=== PATIENT | female | born 2000 | race Caucasian/White ===

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

== ENCOUNTER 2020-01-22 13:58 | Emergency (ER) | payer BC, SELFPAY ==
[2020-01-22 14:07] VITALS: BP 178/104; PULSE 110; RESP 18; TEMP 36.7; O2SAT 99; BMI 30.4
--- NOTE | 2020-01-22 14:20 | XRR_ITS ---
PROCEDURE INFORMATION: Exam: XR Chest, 1 View Exam date and time: 01/22/2020 2:22 PM Age: 20 years old Clinical indication: Patient HX: Cough x4 days TECHNIQUE: Imaging protocol: XR of the chest Views: 1 view. COMPARISON: No relevant prior studies available. FINDINGS: Lungs: Unremarkable. No consolidation. Pleural space: Unremarkable. No pleural effusion. No pneumothorax. Heart/Mediastinum: Unremarkable. No cardiomegaly. Bones/joints: Unremarkable. XR/XR chest 1V portable [id number] IMPRESSION: No acute findings.
--- NOTE | 2020-01-22 14:23 | W.ED.FEVER ---
HPI - Fever General: Chief Complaint: Fever Stated Complaint: possible covid Time Seen by Provider: 01/22/20 14:07 History of Present Illness: HPI Narrative: Patient reports that she has had nausea vomiting diarrhea for the past 3 days. She has not been able to keep anything down for 3 days. She states she woke up this morning with a deep nonproductive cough and a fever. MD elicited complaint: fever, malaise and weakness Onset (ago): day(s) Exacerbating factors: nothing Relieving factors: nothing Associated symptoms: Reports cough, diarrhea, myalgias, nausea, short of breath and vomiting Review of Systems Const: Reports: fever(s) GI: Reports: nausea, vomiting and diarrhea PFSH ED PFSH: Social History Smoking and tobacco status: current every day smoker Alcohol intake: never Physical Exam Const: COMMON NORMALS: no acute distress, healthy appearing and well nourished GENERAL APPEARANCE: cooperative and well developed HENMT: COMMON NORMALS: normocephalic and atraumatic HEAD & SCALP: normal to inspection, normocephalic and atraumatic Eye: GENERAL EYE: appearance normal, both eyes and all related structures Neck/C-Spine: COMMON NORMALS: full ROM, no lymphadenopathy and no meningeal signs GENERAL: Yes normal visual inspection CERVICAL SPINE: Yes cervical ROM normal and Yes normal cervical lordosis Chest: COMMONS NORMALS: normal inspection of the chest and normal palpation of entire chest wall Resp: COMMON NORMALS: normal respiratory effort, clear to auscultation bilaterally and percussion normal AUSCULTATION: clear to auscultation bilaterally PERCUSSION: percussion normal Cardio: COMMON NORMALS: regular rhythm, S1 normal heart sound present and S2 normal heart sound present JUGULAR VENOUS DISTENTION: no JVD PALPATION: normal PMI RATE: tachycardic RHYTHM: regular rhythm HEART SOUNDS: S1 normal heart sound present and S2 normal heart sound present GI: COMMON NORMALS: Soft to palpation and No hepatosplenomegaly present INSPECTION: Yes normal to inspection PALPATION: Yes Soft to palpation and Yes No hepatosplenomegaly present PERCUSSION: normal to percussion : COMMON NORMALS: Yes no CVA tenderness BLADDER/KIDNEY EXAM: Yes no CVA tenderness Back/Pelvis: COMMON NORMALS: no CVA tenderness, thoracic and lumbar spine normal to inspection and thoraco-lumbar ROM normal Extremity: COMMON NORMALS: normal to inspection, full ROM and capillary refill normal Neuro: MENINGEAL SIGNS: Yes no meningeal signs Skin: COMMON NORMALS: no rashes or lesions noted, no wounds and turgor normal GENERAL SKIN EXAM: no rashes or lesions noted, elasticity normal and turgor normal LESIONS: no lesions RASHES: no rashes TRAUMA: no lacerations or abrasions HAIR: normal NAILS: normal Course Vital Signs: Vital signs: Vital Signs Temperature 98.1 F 01/22/20 14:07 Pulse Rate 110 H 01/22/20 14:07 Respiratory Rate 18 01/22/20 14:07 Blood Pressure 178/104 01/22/20 14:07 Pulse Oximetry 99 01/22/20 14:07 MDM - Fever Lab Data: Labs: Lab Results 01/22/20 01/22/20 01/22/20 Range/Units 14:45 14:45 14:45 WBC 9.2 (4.5-13.0) 10^3/ uL RBC 5.10 (4.1-5.3) 10^6/u L Hgb 15.4 H (11.5-15.3) g/dL Hct 45.9 (37.0-47.0) % MCV 90.0 (81-99) fL MCH 30.2 (28.0-34.0) pg MCHC 33.6 (30.0-36.0) g/dL RDW 12.8 (12.1-15.1) % Plt Count 334 (130-400) 10^3/c mm MPV 10.1 (7.4-10.4) fL Neut % (Auto) 62.1 % Lymph % (Auto) 29.8 % [place] % (Auto) 4.8 % Eos % (Auto) 2.1 % Baso % (Auto) 0.9 % Neut # (Auto) 5.7 (1.8-8.0) 10^3/u L Lymph # (Auto) 2.8 (1.5-6.5) 10^3/u L [place] # (Auto) 0.4 (0.2-0.9) 10^3/u L Eos # (Auto) 0.2 (0.0-0.8) 10^3/u L Baso # (Auto) 0.1 (0.0-0.1) 10^3/u L Nucleated RBC % (a uto) 0 % Nucleated RBCs # 0.0 /100WBC Sodium 141 (136-145) mmol/L Potassium 3.9 (3.5-5.1) mmol/L Chloride 106 (98-107) mmol/L Carbon Dioxide 22 (22-29) mmol/L Anion Gap 16.9 (5-19) BUN 7 (6-20) mg/dL Creatinine 0.5 (0.5-0.9) mg/dL GFR Calculation 157.3 H (90-130) mL/min Glucose 93 (65-115) mg/dL Calculated Osmolal ity 288 (285-295) mOsm/k g Lactate 0.8 (0.5-2.2) mmol/L Calcium 9.6 (8.5-10.5) mg/dL Total Bilirubin 1.0 (0.15-1.2) mg/dL AST 16 (0-32) U/L ALT 15 (0-33) U/L Alkaline Phosphata se 76 (35-105) IU/L Total Protein 7.1 (6.6-8.7) g/dL Albumin 4.8 (3.5-5.2) g/dL Globulin 2.3 (1.3-4.6) g/dL Discharge Plan Discharge Patient Disposition: Home, Self-Care Clinical Impression: Viral infection, Pharyngitis with viral syndrome Upper respiratory infection Qualifiers: URI type: unspecified URI Qualified Code(s): J06.9 - Acute upper respiratory infection, unspecified Condition: Stable Prescriptions: New Bactrim DS 800-160 mg tablet 1 tab PO Q12H 10 Days Qty: 20 RF: 0 albuterol sulfate 90 mcg/actuation HFA aerosol inhaler 1 inh INHALATION Q4H PRN (Reason: shortness of breath or wheezing) Qty: 8.5 RF: 0 Discharge Orders: Discharge Order (Routine); Ordered 01/22/20 Ordered By: Marito Schwartz Referrals: Missy Bello FNP [Primary Care Provider] - Coding Level of Care Code ED Performance Improvement Analyst for g Fwd Exam Comprehensive
[2020-01-22 14:52] LABS: Basophils # 0.1 10^3/uL (0.0-0.1); Basophils % 0.9 %; Eosinophils # 0.2 10^3/uL (0.0-0.8); Eosinophils % 2.1 %; Hematocrit 45.9 % (37.0-47.0); Hemoglobin 15.4 g/dL (11.5-15.3); Lymphocytes # 2.8 10^3/uL (1.5-6.5); Lymphocytes % 29.8 %; Mean Corpuscular HGB Conc 33.6 g/dL (30.0-36.0); Mean Corpuscular Hemoglobin 30.2 pg (28.0-34.0); Mean Platelet Volume 10.1 fL (7.4-10.4); Monocytes # 0.4 10^3/uL (0.2-0.9); Monocytes % 4.8 %; Neutrophils # 5.7 10^3/uL (1.8-8.0); Neutrophils % 62.1 %; Nucleated Red Blood Cells % 0 %; Platelet Count 334 10^3/cmm (130-400); Red Cell Distribution Width 12.8 % (12.1-15.1); White Blood Count 9.2 10^3/uL (4.5-13.0)
[2020-01-22] MEDS: sodium chloride 0.9% 1,000 ML 999 ML IV (14:52)
[2020-01-22 15:06] LABS: Lactate (Lactic Acid level) 0.8 mmol/L (0.5-2.2)
[2020-01-22 15:16] LABS: Alanine Aminotransferase 15 U/L (0-33); Albumin Level 4.8 g/dL (3.5-5.2); Alkaline Phosphatase 76 IU/L (35-105); Anion Gap 16.9 (5-19); Aspartate Amino Transferase 16 U/L (0-32); Blood Urea Nitrogen 7 mg/dL (6-20); Calcium 9.6 mg/dL (8.5-10.5); Carbon Dioxide 22 mmol/L (22-29); Chloride 106 mmol/L (98-107); Globulin 2.3 g/dL (1.3-4.6); Glomerular Filtration Rate 157.3 mL/min (90-130); Glucose 93 mg/dL (65-115); Osmolality Calculated 288 mOsm/kg (285-295); Potassium 3.9 mmol/L (3.5-5.1); Sodium 141 mmol/L (136-145); Total Protein 7.1 g/dL (6.6-8.7)
[2020-01-22 16:20] VITALS: BP 127/76; PULSE 92; RESP 16; O2SAT 100
[2020-01-24 19:26] LABS: Quest SARS-CoV-2 RNA NOT DETECTED (NOT DETECTED)
--- NOTE | 2020-01-27 16:09 | PC.NURSE ---
Pt called regarding her COVID test results. Pt notified that her results are negative.
== END 2020-01-22 16:22 | disposition home or self-care (01) ==
PROVIDERS: Emergency Provider Family Medicine; PCP Nurse Practitioner
DX: J02.8 Acute pharyngitis due to other specified organisms (principal); F17.210 Nicotine dependence, cigarettes, uncomplicated
CPT/HCPCS: 12345; 36415; 71045; 80053; 83605; 85025; 87040; 87635; 96360; 99282; 99283; J7030

== ENCOUNTER 2021-05-06 08:21 | Outpatient (CLI) | payer OTHER, SELFPAY ==
--- NOTE | 2021-05-06 08:45 | MR_ITS ---
WS: [id number] MRI RIGHT SHOULDER HISTORY: Right shoulder pain, h/o RCT x 2 with surgical repair x 2. COMPARISON: None available. TECHNIQUE: Multiplanar sequences of the shoulder joint are submitted. Mild AC joint hypertrophy. Mild thickening of the joint capsule and narrowing of the AC joint. No sub acromial or subdeltoid bursal fluid. No os acromion. Biceps tendon is subluxed from the bicipital adrian ove. No muscle atrophy or edema. There is a small cystic mass which is lobulated measuring 2.3 x 0.6 cm in the spinoglenoid notch. This may be a paralabral cyst. There is mild irregularity in the posterior s uperior labrum but no definite tear identified. Very mild narrowing of the glenohumeral joint. Again no muscle atrophy or edema. Very mild tendinopathy in the distal supraspinatus tendon but no tear identified. MR/MR shoulder RT wo con* [id number] IMPRESSION: 1. No rotator cuff tear is identified. 2. Mild tendinopathy distal supraspinatus tendon. 3. 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 Consider paralabral cyst whi ch can be associated with a labral tear. No labral tear identified. 4. Subluxed biceps tendon.
== END 2021-05-06 08:22 | disposition home or self-care (01) ==
LOC: RADSHAW 08:25
PROVIDERS: PCP Family Medicine; Visit Provider Family Medicine
DX: M25.511 Pain in right shoulder (principal); M75.101 Unspecified rotator cuff tear or rupture of right shoulder, not specified as traumatic
CPT/HCPCS: 73221

== ENCOUNTER 2021-05-17 06:00 | Outpatient (RCR) | payer OTHER, SELFPAY | END 2021-06-09 23:59 | disposition home or self-care (01) | LOC: SPT 06:00 | PROVIDERS: PCP Family Medicine; Referring Provider Orthopaedic Surgery; Visit Provider Orthopaedic Surgery | DX: M25.551 Pain in right hip (principal) | CPT/HCPCS: 97110; 97161 ==

== ENCOUNTER → 2021-05-22 15:51 | Outpatient (BNVA) | payer OTHER, SELFPAY | PROVIDERS: PCP Family Medicine; Visit Provider Nurse Practitioner Family | DX: Z20.822 Contact with and (suspected) exposure to COVID-19 (principal) | CPT/HCPCS: 87635 ==

== ENCOUNTER → 2021-05-25 14:36 | Outpatient (BNVA) | payer OTHER, SELFPAY | PROVIDERS: PCP Family Medicine; Visit Provider Registered Nurse Neonatal Intensive Care | DX: Z20.822 Contact with and (suspected) exposure to COVID-19 (principal); J02.9 Acute pharyngitis, unspecified | CPT/HCPCS: 87071; 87635; 87880 ==

== ENCOUNTER 2021-06-10 06:00 | Outpatient (RCR) | payer OTHER, SELFPAY | END 2021-07-09 23:59 | disposition home or self-care (01) | LOC: SPT 06:00 | PROVIDERS: PCP Family Medicine; Referring Provider Orthopaedic Surgery; Visit Provider Orthopaedic Surgery | DX: M25.511 Pain in right shoulder (principal) | CPT/HCPCS: 97110 ==

== ENCOUNTER → 2021-07-12 13:35 | Outpatient (BNVA) | payer OTHER, SELFPAY | PROVIDERS: PCP Family Medicine; Visit Provider Orthopaedic Surgery | DX: Z01.818 Encounter for other preprocedural examination (principal); Z20.822 Contact with and (suspected) exposure to COVID-19 | CPT/HCPCS: 87635 ==

== ENCOUNTER 2021-07-18 09:06 | Day surgery (SDC) | payer OTHER, SELFPAY ==
[2021-07-17 13:12] VITALS: BMI 30.4
[2021-07-18] VITALS (18 sets, daily range): BP systolic 121–156; BP diastolic 83–109; PULSE 63–100; RESP 11–24; TEMP 36.1–37.1; O2SAT 98–100
[2021-07-18] MEDS: acetaminophen 500 mg Tablet 1000 MG PO (09:43)
[2021-07-18] MEDS: sodium chloride 0.9% 1,000 ML 30 ML IV (09:51)
[2021-07-18] MEDS: fentaNYL 50 mcg/mL INJ 2mL 100 MCG IVP (10:00)
[2021-07-18] MEDS: midazolam 1 mg/mL INJ 5 ML 5 MG IVP (10:00)
--- NOTE | 2021-07-18 10:09 | ANES.PROC ---
Anesthesia Procedures Procedure/Date: 07/18/21 Nerve Block ^: Nerve Block 1: Time Out Performed: Yes Consent: requested by attending/covering physician, risks and benefits reviewed and patient agrees to proceed Nerve block location: interscalene Anesthesia monitors applied: pulse oximetry, BP cuff and oxygen Nerve block position: semi sitting Anesthetic Used: ropivicaine 0.5% Amount of anesthesia used (mL): 30 Nerve Stimulator Used?: Yes Interscalene/Femoral BLK: 2 stimuplex 22 g needle used for position and inplane approach Patient Tolerated Procedure: well and no complications Complications: none Additional Comments: Easy localization of right interscalene with profound motor response involving the right shoulder and arm at 1.3mAmp; response disappeared at 0.40mAmp.
--- NOTE | 2021-07-18 11:32 | W.PM.OPSUD ---
Surgery/Procedure H&P Update DATE OF PROCEDURE: July 18, 2021 DATE H&P PERFORMED: 06/26/21 H&P UPDATE INFORMATION: I have reviewed H&P completed within last 30 days PREOP DIAGNOSIS: Spinoglenoid notch cyst right shoulder PLANNED PROCEDURE: Operation Date: 07/18/21 10:30 Proposed Procedures p Diagnostic Shoulder Arthroscopy 52548 M67.411(Right) - Cali Hubbard MD
[2021-07-18 12:04] LABS: OR HCG Qualitative Urine Negative (Negative)
[2021-07-18] MEDS: EPINEPHrine 1 mg/mL INJ 2 MG XX (12:45)
--- NOTE | 2021-07-18 13:39 | PM.OP ---
Operative Report Date of procedure: July 18, 2021 Pre-op Diagnosis: Spinoglenoid notch cyst right shoulder Post-op Diagnosis: Degenerative tearing posterior superior labrum and spinal glenoid notch cyst right shoulder Post-op Findings: As above Procedure Done: Debridement para labral cyst right shoulder and repair posterior superior labrum Pathology: none sent Surgeon: Cali Hubbard Anesthesia: General and Nerve Block (Interscalene block) Estimated blood loss (mL): 20 Findings: The patient had degeneration in her posterior superior labrum from approximately the 9:00 to the 11 o'clock position which was in continuity with a fluid filled cavity behind the posterior superior labrum. Biceps tendon was healthy. The rotator cuff was healthy. There is no humeral head or glenoid chondromalacia Condition: stable Disposition: PACU Procedure: The patient was given an interscalene block in holding and taken to the operating room. She was given 2 g of Ancef. She was prepped and draped in the lateral position with the right arm in 15 pounds of traction. A timeout was performed. A posterior portal was made 2 cm inferior medial to the posterior part of the acromion. A scope cannula and trocar were driven into the glenohumeral joint. An anterior working portal was made with a scalpel blade an 8 mm cannula placed anteriorly. The diagnostic portion arthroscopy was performed. No superior or anterior pathology were identified. The scope was then redirected through the anterior portal. An accessory more lateral portal was made to pass the probe into the posterior joint. The posterior labrum was probed with a poor degenerative attachment from 9:00 to approximately 11:00. Initially a Rosas and Nephew Werewolf probe was used to remove degenerative tissue at the attachment. A meniscal rasp with me passed along the posterior glenoid revealing a cavity full of thick fluid. An incisor shaver is introduced in the defect and fluid removed in the edges the cavity lightly rasped. Next through the posterior cannula a 1.8 mm Q fix anchor was placed at approximately the 10 o'clock position. A suture retriever was passed through the labrum at that level and 1 limb of suture brought back through the cannula. This was secured with a sliding Bush knot and alternating half hitches bringing the labrum in the 10 o'clock position tightly back to the posterior glenoid. This was repeated again in approximately the 11 o'clock position in identical fashion. The repair was probed and found to be stable. The repair was visualized from the posterior portal and the biceps anchor and posterior labrum were carefully probed again with stability. Arthroscopic clip was removed. Portals were closed with 3-0 Prolene. Sterile dressings were applied. He was placed in an abduction pillow, extubated, and taken to recovery room in stable condition.
[2021-07-18] MEDS: fentaNYL 50 mcg/mL INJ 2mL IVP (13:59)
[2021-07-18] MEDS: HYDROmorphone 1 mg/mL INJ 1 mL 0.5 MG IVP (14:21)
[2021-07-18] MEDS: midazolam 1 mg/mL INJ 2 mL 2 MG IVP (14:34)
[2021-07-18] MEDS: sodium chloride 0.9% 1,000 ML 30 ML (14:43)
[2021-07-18] MEDS: oxyCODONE 5 mg IR Tab/Cap PO (15:15)
--- NOTE | 2021-07-18 19:59 | ANE.PACU2 ---
Inpatient post-anesthesia follow up: Airway intact: Yes Vital signs: Temperature 97.8 F Pulse Rate 64 Respiratory Rate 18 Blood Pressure 134/84 Pulse Oximetry 100 Oxygen Delivery Me thod Room Air Oxygen Flow Rate 2 Fraction of Inspir ed Oxygen Hydration adequate: Yes Nausea and vomiting: No Pain level: 4 Mental status: Baseline
== END 2021-07-18 15:53 | disposition home or self-care (01) ==
PROVIDERS: Anesthesiology; PCP Family Medicine; Visit Provider Orthopaedic Surgery
PROC: (CPT 29805; principal; 2021-07-18 10:20)
DX: M67.411 Ganglion, right shoulder (principal); S43.431A Superior glenoid labrum lesion of right shoulder, initial encounter; X58.XXXA Exposure to other specified factors, initial encounter
CPT/HCPCS: 29807; 29822; 81025; 84703; 96365; 96374; 96375; C1713; J0171; J0690; J1100; J1170; J1200; J1885; J2250; J2405; J2704; J2710; J2795; J3010; J3490; J7030

== ENCOUNTER 2021-08-13 06:00 | Outpatient (RCR) | payer OTHER, SELFPAY | END 2021-09-09 23:59 | disposition home or self-care (01) | LOC: SPT 06:00 | PROVIDERS: PCP Family Medicine; Referring Provider Orthopaedic Surgery; Visit Provider Orthopaedic Surgery | DX: Z47.89 Encounter for other orthopedic aftercare (principal) | CPT/HCPCS: 97140; 97161 ==

== ENCOUNTER 2021-09-10 06:00 | Outpatient (RCR) | payer OTHER, SELFPAY | END 2021-10-07 23:59 | disposition home or self-care (01) | LOC: SPT 06:00 | PROVIDERS: PCP Family Medicine; Referring Provider Orthopaedic Surgery; Visit Provider Orthopaedic Surgery | DX: Z47.89 Encounter for other orthopedic aftercare (principal) | CPT/HCPCS: 97110; 97140 ==

== ENCOUNTER 2021-10-08 06:00 | Outpatient (RCR) | payer OTHER, SELFPAY | END 2021-11-07 23:59 | disposition home or self-care (01) | LOC: SPT 06:00 | PROVIDERS: PCP Family Medicine; Referring Provider Orthopaedic Surgery; Visit Provider Orthopaedic Surgery | DX: Z47.89 Encounter for other orthopedic aftercare (principal) | CPT/HCPCS: 97110 ==

== ENCOUNTER 2021-11-08 06:00 | Outpatient (RCR) | payer OTHER, SELFPAY | END 2021-12-07 23:59 | disposition home or self-care (01) | LOC: SPT 06:00 | PROVIDERS: PCP Family Medicine; Referring Provider Orthopaedic Surgery; Visit Provider Orthopaedic Surgery | DX: Z47.89 Encounter for other orthopedic aftercare (principal) | CPT/HCPCS: 97110 ==

== ENCOUNTER 2021-12-05 14:22 | Outpatient (CLI) | payer OTHER, SELFPAY ==
--- NOTE | 2021-12-05 14:30 | MR_ITS ---
WS: [id number] MRI RIGHT SHOULDER NONCONTRAST TECHNIQUE: Sagittal T2, coronal T1, T2 and proton density imaging. Axial gradient PDE imaging. CLINICAL INFORMATION: M67.411 - Ganglion, right shoulder COMPARISON: MRI May 06, 2021 FINDINGS: Previous described spinoglenoid notch cyst has been resected. Mild degenerative arthritis AC joint. Mild downsloping acromion. Slight subacromial sp urring. Slight impingement on the distal supraspinatus. . Small amount of subacromial/subdeltoid fluid. Supraspinatus is intact. Normal infraspinatus. Normal teres minor. Normal subscapularis. Chronic dislocation of the biceps tendon from the bicipital groov e is unchanged. Biceps labral anchor appears intact. Glenoid labrum appears grossly normal. Normal bone marrow signal in the humerus and glenoid. MR/MR shoulder RT wo con* [id number] IMPRESSION: 1. Interval postoperative changes resection of the spinoglenoid notch cyst. No recurrent cyst. 2. Mild degenerative arthritis AC joint with mild downsloping of the acromion. Slight impingement on the distal supraspinatus tendon which appears intact. 3. No high-grade rotator cuff tears. 4. Chronic medial dislocation of biceps tendon from the bicipital groove is un changed. 5. Normal biceps labral anchor. 6. No other significant changes compared to previous.
== END 2021-12-05 14:23 | disposition home or self-care (01) ==
LOC: RAD 14:24
PROVIDERS: PCP Family Medicine; Visit Provider Orthopaedic Surgery
DX: M67.411 Ganglion, right shoulder (principal)
CPT/HCPCS: 73221

== ENCOUNTER 2021-12-08 06:00 | Outpatient (RCR) | payer OTHER, SELFPAY | END 2022-01-07 23:59 | disposition home or self-care (01) | LOC: SPT 06:00 | PROVIDERS: PCP Family Medicine; Referring Provider Orthopaedic Surgery; Visit Provider Orthopaedic Surgery | DX: S49.91XD Unspecified injury of right shoulder and upper arm, subsequent encounter (principal); X58.XXXD Exposure to other specified factors, subsequent encounter | CPT/HCPCS: 97110 ==

== ENCOUNTER 2022-01-23 07:05 | Day surgery (SDC) | payer OTHER, SELFPAY ==
[2022-01-22 14:24] VITALS: BMI 30.4
[2022-01-23] VITALS (19 sets, daily range): BP systolic 110–153; BP diastolic 66–99; PULSE 70–92; RESP 13–27; TEMP 36.2–36.6; O2SAT 94–100
[2022-01-23] MEDS: acetaminophen 500 mg Tablet 1000 MG PO (07:31)
[2022-01-23] MEDS: sodium chloride 0.9% 1,000 ML 30 ML IV (07:32)
[2022-01-23 07:41] LABS: OR HCG Qualitative Urine Negative (Negative)
--- NOTE | 2022-01-23 07:56 | ANES.PREANE2 ---
Pre-Anesthetic Assessment Height/Weight: Height 1.73 m Weight 90.718 kg Temp Pulse Resp BP Pulse Ox 97.8 F 88 18 144/91 100 01/23/22 07:19 01/23/22 07:19 01/23/22 07:19 01/23/22 07:19 01/23/22 07:19 Preop Diagnosis: Instability biceps tendon Operation Date: 01/23/22 09:05 Proposed Procedures p right shoulder arthroscopy with biceps tenodesis/ [id number],S43.003A(Right) - Cali Hubbard MD Familial anesthetic complications: None Was Beta Shanta taken within 24 hours: N/A Was Clonidine taken within 24 hours: N/A Last intake: Intake Last Liquid Date 01/22/22 Last Liquid Time 23:55 Last Solid Date 01/22/22 Last Solid Time 20:00 Social No alcohol Patienit Vapes Exam alert, oriented x 3, clear to auscultation bilaterally and regular rate & rhythm Airway Mallampati: Class II Dentition: full Pulmonary None reported CV/HEM None reported None reported Hepatic None reported GI None reported Metabolic None reported Musc/skel None reported Neuropsych None reported Anesthetic Plan ASA status: 1 Anesthesia: General and Regional (specify below) Risk of > 500 ml blood loss (7ml/kg in children): No Medications/Allergies Home Medications Medication Instructions Recorded Confirmed Last Taken Type albuterol sulfate 90 mcg/actuation 1 inh INHALATION Q4H PRN #8.5 gm 01/22/20 01/23/22 Unknown Rx aerosol inhaler acetaminophen 325 mg tablet 325 mg PO QID PRN 07/17/21 01/23/22 07/17/21 History (Tylenol) ibuprofen 200 mg tablet 200 mg PO Q6H PRN 07/17/21 01/22/22 07/17/21 History levonorgestrel 20 mcg/24 hours (7 20 mcg INTRAUTERINE ONCE 07/17/21 01/22/22 Unknown History yrs) 52 mg intrauterine device (Mirena) oxycodone 5 mg tablet 5 mg PO Q4H PRN 7 Days #40 tab 07/29/21 01/22/22 Unknown Rx hydrocodone 5 mg-acetaminophen 325 1 tab PO Q4H PRN 7 Days #30 tab 09/25/21 01/23/22 Unknown Rx mg tablet oxycodone 5 mg tablet 5 mg PO Q4H PRN #40 tab 01/23/22 Unknown Rx Allergies Allergy/AdvReac Type Severity Reaction Status Date / Time amoxicillin Allergy rash Verified 01/23/22 07:17 azithromycin [From Zithromax] Allergy rash Verified 01/23/22 07:17 Penicillins Allergy rash Verified 01/23/22 07:17 Current Medications Generic Name Dose Route Start Last Admin Trade Name Freq PRN Reason Stop Dose Admin Sodium Chloride 1,000 mls @ 30 mls/hr 01/23/22 07:15 01/23/22 07:32 Sodium Chloride 0.9% IV 01/24/22 07:14 30 mls/hr .Q24H CRISTEL Administration PFSH Anesthesia Social History Smoking and tobacco status: current every day smoker e-cigarettes Second hand smoke exposure: Yes Alcohol intake: current Alcohol intake frequency: few times a week Data Anesthesia Cardiac Studies: No Data to Display
--- NOTE | 2022-01-23 08:11 | ANES.PROC ---
Anesthesia Procedures Procedure/Date: 01/23/22 Nerve Block ^: Nerve Block 1: Main Anesthesia: general anesthesia Time Out Performed: Yes Consent: requested by attending/covering physician, from patient, risks and benefits reviewed and patient agrees to proceed Nerve block location: interscalene (R) Anesthesia monitors applied: pulse oximetry, EKG, BP cuff and oxygen Nerve block position: semi sitting Anesthetic Used: ropivicaine 0.5% (20) and with decadron (4 mg) Amount of anesthesia used (mL): 30 Ultrasound used to: recognize landmarks and visualize and ID interscalene groove Nerve Stimulator Used?: No Interscalene/Femoral BLK: 2 stimuplex 22 g needle used for position and inplane approach, visualize local anesthetic spread and no vascular puncture identified Injection: neg aspiration of heme Patient Tolerated Procedure: well Complications: none
--- NOTE | 2022-01-23 09:35 | W.PM.OPSUD ---
Surgery/Procedure H&P Update DATE OF PROCEDURE: January 23, 2022 DATE H&P PERFORMED: 01/07/22 H&P UPDATE INFORMATION: I have reviewed H&P completed within last 30 days PREOP DIAGNOSIS: Instability biceps tendon PLANNED PROCEDURE: Operation Date: 01/23/22 09:05 Proposed Procedures p right shoulder arthroscopy with biceps tenodesis/ [id number],S43.003A(Right) - Cali Hubbard MD
--- NOTE | 2022-01-23 11:45 | PM.OP ---
Operative Report Date of procedure: January 23, 2022 Pre-op diagnosis: Preop Diagnosis Instability biceps tendon Post-op diagnosis: same Procedure done: Arthroscopic assisted biceps tenodesis Implants: Rosas and Nephew Q fix anchors x2 Pathology: none sent Surgeon: Cali Hubbard Anesthesia: General and Nerve Block (Interscalene block) Estimated blood loss (mL): 20 Findings: The patient's biceps tendon appeared healthy but was unstable within the bicipital groove, as evidenced by a clunking as the and anterior displacement as it was displaced anteriorly with a probe. The subscap footprint was carefully evaluated and found to be intact. Previous posterior superior anchor is associated with a posterior labral tear were identified without obvious recurrent tearing Condition: stable Disposition: PACU Brief History: Jasmine is a 22-year-old female who underwent arthroscopic surgery for a paralabral cyst in her posterior superior shoulder. She sustained a fall with increased pain and popping. MRI suggested subluxation of the biceps tendon and it was thought that she had instability of the proximal biceps and a possible subscapularis tear. She was taken to the operating room for an anticipated biceps tenodesis and possible subscapularis repair Procedure: The patient was taken to the operating room after she was given a interscalene block. She was given 2 g of Ancef. He was positioned in the lateral position with the right arm in traction. A timeout was performed. The shoulder was entered through a posterior portal 2 cm inferior and medial to the posterior corner of the acromion. The diagnostic portion of the glenohumeral arthroscopy was performed. The humeral head and glenoid were inspected and found to be free of chondromalacia. The posterior labral tear was inspected. Anchors were intact and no residual cyst formation. The undersurface the rotator cuff was inspected. The biceps tendon was probed with a probe and could be displaced anteriorly on the biceps groove and reducing with a palpable clunk. It was assumed that the biceps was certainly unstable and would require tenodesis. Utilizing the Rosas and Nephew Werewolf probe the biceps root was released from the superior labrum with the biceps out of the field that the subscapularis was inspected. A 70 degree scope with scope was introduced and posterior directed force placed across the humerus. The subscap attachment was felt to be intact. Arthroscopy equipment was then removed and the bursal aspect the rotator cuff was inspected as well revealing no bursal sided tearing. We then proceeded with the biceps tenodesis. A 3 cm long incision was made in the anterior axillary fold dissection carried down deep to the bicipital groove. The lower border of the pectoralis major tendon was identified. The biceps tendon was identified within the groove and retracted through the wound. 2 Rosas and Nephew Q fix anchors were placed approximately 1 cm apart just inferior to the pectoralis major tendon. Sutures were secured around the biceps and a luggage tag fashion along the biceps tightly down to the groove. The biceps tendon was then brought proximally over the 2 anchors and secured again with 2 sutures from the inferior anchor to create additional muscle bulk to prevent displacement. The biceps was intact. Deep tissues were closed with 2-0 Vicryl. Skin was closed with interrupted 3-0 Prolene. Arthroscopic portals were closed with 3-0 Prolene. Sterile dressings were applied. The patient was extubated and taken to recovery room in stable condition.
[2022-01-23] MEDS: fentaNYL 50 mcg/mL INJ 2mL IVP ×2 (11:58→12:06)
[2022-01-23] MEDS: meperidine 50 mg/mL INJ 12.5 MG IVP ×2 (12:10→12:16)
--- NOTE | 2022-01-23 12:56 | SUR.PHASEI ---
1242-timeout was completed at bedside in PACU, dr dwyer gave patient a block to right shoulder. Patient tolerated well.
[2022-01-23] MEDS: oxyCODONE 5 mg IR Tab/Cap PO (13:07)
--- NOTE | 2022-01-23 16:12 | ANES.PROC ---
Anesthesia Procedures Procedure/Date: 01/23/22 Nerve Block ^: Nerve Block 1: Main Anesthesia: general anesthesia Time Out Performed: Yes Consent: requested by attending/covering physician Nerve block location: interscalene (R) Nerve block position: semi sitting Anesthetic Used: ropivicaine 0.5% (10 cc) Amount of anesthesia used (mL): 10 Nerve Stimulator Used?: No Interscalene/Femoral BLK: 2 stimuplex 22 g needle used for position and inplane approach, visualize local anesthetic spread and no vascular puncture identified Injection: neg aspiration of heme Patient Tolerated Procedure: well Complications: none Additional Comments: rescue block for persistent pain
--- NOTE | 2022-01-23 16:35 | ANE.PACU2 ---
Inpatient post-anesthesia follow up: Airway intact: Yes Vital signs: Temperature 97.9 F Pulse Rate 70 Respiratory Rate 18 Blood Pressure 116/79 Pulse Oximetry 99 Oxygen Delivery Me thod Room Air Oxygen Flow Rate Fraction of Inspir ed Oxygen Hydration adequate: Yes Nausea and vomiting: No Pain level: 4 Mental status: Baseline
== END 2022-01-23 13:25 | disposition home or self-care (01) ==
PROVIDERS: Anesthesiology; PCP Family Medicine; Visit Provider Orthopaedic Surgery
PROC: (CPT 29805; principal; 2022-01-23 09:05)
DX: S46.111A Strain of muscle, fascia and tendon of long head of biceps, right arm, initial encounter (principal); W19.XXXA Unspecified fall, initial encounter; F17.290 Nicotine dependence, other tobacco product, uncomplicated
CPT/HCPCS: 29828; 81025; 84703; C1713; J1100; J2175; J2405; J2704; J2795; J3010; J3490; J7030

== ENCOUNTER 2022-02-24 06:00 | Outpatient (RCR) | payer OTHER, SELFPAY | END 2022-03-09 23:59 | disposition home or self-care (01) | LOC: SPT 06:00 | PROVIDERS: PCP Family Medicine; Referring Provider Orthopaedic Surgery; Visit Provider Orthopaedic Surgery | DX: M75.21 Bicipital tendinitis, right shoulder (principal) | CPT/HCPCS: 97110; 97161 ==

== ENCOUNTER 2022-03-10 06:00 | Outpatient (RCR) | payer OTHER, SELFPAY | END 2022-04-09 23:59 | disposition home or self-care (01) | LOC: SPT 06:00 | PROVIDERS: PCP Family Medicine; Referring Provider Orthopaedic Surgery; Visit Provider Orthopaedic Surgery | DX: Z47.89 Encounter for other orthopedic aftercare (principal) | CPT/HCPCS: 97110 ==

== ENCOUNTER 2022-04-18 | Outpatient (RCR) | payer OTHER, SELFPAY | END 2022-05-09 23:59 | disposition home or self-care (01) | LOC: SPT | PROVIDERS: PCP Family Medicine; Referring Provider Orthopaedic Surgery; Visit Provider Orthopaedic Surgery | DX: Z47.89 Encounter for other orthopedic aftercare (principal); M25.611 Stiffness of right shoulder, not elsewhere classified; M25.511 Pain in right shoulder | CPT/HCPCS: 97110 ==

== ENCOUNTER 2022-05-10 06:00 | Outpatient (RCR) | payer OTHER, SELFPAY | END 2022-05-21 23:59 | disposition home or self-care (01) | LOC: SPT 06:00 | PROVIDERS: PCP Family Medicine; Visit Provider Orthopaedic Surgery | DX: M75.21 Bicipital tendinitis, right shoulder (principal) | CPT/HCPCS: 97110 ==

== ENCOUNTER 2022-07-10 09:59 | Day surgery (SDC) | payer OTHER, SELFPAY ==
[2022-07-10] VITALS (9 sets, daily range): BP systolic 114–161; BP diastolic 68–99; PULSE 88–109; RESP 12–18; TEMP 36.2–36.7; O2SAT 94–99
[2022-07-10] MEDS: sodium chloride 0.9% 1,000 ML 30 ML IV (10:23)
[2022-07-10 10:25] LABS: OR HCG Qualitative Urine Negative (Negative)
--- NOTE | 2022-07-10 10:58 | ANES.PROC ---
Anesthesia Procedures Procedure/Date: 07/10/22 Nerve Block ^: Nerve Block 1: Main Anesthesia: general anesthesia Time Out Performed: Yes Consent: requested by attending/covering physician, from patient, from other, risks and benefits reviewed and patient agrees to proceed Nerve block location: interscalene (R) Anesthesia monitors applied: pulse oximetry, EKG, BP cuff and oxygen Nerve block position: semi sitting Anesthetic Used: ropivicaine 0.5% (20 ml) and with decadron (4 mg) Ultrasound used to: recognize landmarks, visualize and ID brachial plexus and visualize and ID interscalene groove Interscalene/Femoral BLK: 2 stimuplex 22 g needle used for position and inplane approach, visualize local anesthetic spread and no vascular puncture identified Injection: neg aspiration of heme Patient Tolerated Procedure: well and no complications
--- NOTE | 2022-07-10 10:59 | P.ANESASSM_ITS ---
Pre-Anesthetic Assessment Height/Weight: Height 1.73 m Weight 90.718 kg Temp Pulse Resp BP Pulse Ox O2 Del Method 97.7 F 109 H 16 161/99 99 07/10/22 10:11 07/10/22 10:11 07/10/22 10:11 07/10/22 10:11 07/10/22 10:11 07/10/22 10:14 Preop Diagnosis: Adhesive capsulitis right shoulder Operation Date: 07/10/22 11:30 Proposed Procedures p manipulation of right shoulder vs arthroscopic debridement/ 56465, 85049,M75.01(Right) - Cali Hubbard MD s Shoulder Arthroscopy(Right) - Cali Hubbard MD Familial anesthetic complications: None Was Beta Shanta taken within 24 hours: N/A Was Clonidine taken within 24 hours: N/A Last intake: Intake Last Liquid Date 07/09/22 Last Liquid Time 22:00 Last Solid Date 07/09/22 Last Solid Time 18:00 Social Tobacco and No alcohol Vvapes Exam alert, oriented x 3, clear to auscultation bilaterally and regular rate & rhythm Airway Mallampati: Class I Dentition: full History/ROS No significant complaints Anesthetic Plan ASA status: 1 Anesthesia: General and Regional (specify below) Risk of > 500 ml blood loss (7ml/kg in children): No Medications/Allergies Home Medications Medication Instructions Recorded Confirmed Last Taken Type albuterol sulfate 90 mcg/actuation 1 inh inhalation Q4H PRN shortness 01/22/20 07/10/22 05/20/22 Rx aerosol inhaler of breath or wheezing #8.5 grams acetaminophen 325 mg tablet 325 mg PO QID PRN Pain 07/17/21 07/10/22 05/13/22 History (Tylenol) ibuprofen 200 mg tablet 200 mg PO Q6H PRN Pain 07/17/21 07/10/22 06/30/22 His tory levonorgestrel 20 mcg/24 hours (7 20 mcg intrauterine ONCE 07/17/21 07/09/22 07/09/22 History yrs) 52 mg intrauterine device (Mirena) ondansetron 4 mg disintegrating 4 mg PO QID PRN nausea and 01/29/22 07/10/22 07/09/22 Rx tablet vomiting #20 tabs hydrocodone 5 mg-acetaminophen 325 1 tab PO Q4H PRN pain 5 days #30 07/01/22 11/30/22 11/27/22 Rx mg tablet tabs gabapentin 100 mg capsule 100 mg PO BID #90 caps 02/27/22 07/10/22 07/09/22 Rx gabapentin 300 mg capsule 300 mg PO DAILY #60 caps 05/13/22 07/09/22 07/08/22 Rx Allergies Allergy/AdvReac Type Severity Reaction Status Date / Time amoxicillin Allergy rash Verified 07/10/22 10:10 azithromycin [From Zithromax] Allergy rash Verified 07/10/22 10:10 Penicillins Allergy rash Verified 07/10/22 10:10 Current Medications Generic Name Dose Route Start Last Admin Trade Name Freq PRN Reason Stop Dose Admin Sodium Chloride 1,000 mls @ 30 mls/hr 07/10/22 10:15 07/10/22 10:23 Sodium Chloride 0.9% IV 07/11/22 10:14 30 mls/hr .Q24H CRISTEL Administration PFSH Anesthesia Social History Smoking and tobacco status: never smoked Second hand smoke exposure: Yes Alcohol intake: current Alcohol intake frequency: few times a week Data Anesthesia Cardiac Studies: No Data to Display
--- NOTE | 2022-07-10 12:47 | W.PM.OPSFHP ---
Same Day Surgery H&P Indication for Procedure/HPI DATE OF PROCEDURE: July 10, 2022 CHIEF COMPLAINT/INDICATIONFOR SURGICAL PROCEDURE: Right shoulder adhesive capsulitis PREOP DIAGNOSIS: Adhesive capsulitis right shoulder PLANNED PROCEDURE: Operation Date: 07/10/22 11:30 Proposed Procedures p manipulation of right shoulder vs arthroscopic debridement/ 72762, 54101,M75.01(Right) - Cali Hubbard MD s Shoulder Arthroscopy(Right) - Cali Hubbard MD Wilemr has a history of problems with her right shoulder pain. She was seen by me in May 2021 for pain in the right shoulder. She brought with her MRI showing a paralabral cyst. She was taken to the operating room on 12/16/2020 where she underwent debridement of the cyst and repair of the superior labrum but she continues to be bothered by pain. A subsequent MRI was obtained on 12/05/2021. That study revealed the absence of these paralabral cyst but persistent medial subluxation of the biceps in the bicipital groove. She was brought back to the OR on 01/23/2022 where she underwent diagnostic arthroscopy and additional biceps tenodesis. She continued with therapy but continues to be bothered by pain and stiffness in the shoulder. She was last seen on 06/03/2022 she was noted to have persistent motion loss including forward flexion to only 100 degrees. She was counseled that as she had failed to improve with therapy we felt that additional efforts to regain motion were warranted. Session was made to proceed to the operating room for manipulation versus arthroscopic release of adhesions. Medications/Allergies* Home Medications Medication Instructions Recorded Confirmed Type acetaminophen 325 mg tablet 325 mg PO QID PRN Pain 07/17/21 07/10/22 History (Tylenol) ibuprofen 200 mg tablet 200 mg PO Q6H PRN Pain 07/17/21 07/10/22 History levonorgestrel 20 mcg/24 hours (7 20 mcg intrauterine ONCE 07/17/21 07/09/22 History yrs) 52 mg intrauterine device (Mirena) Allergies/Adverse Reactions Allergy/AdvReac Type Severity Reaction Status Date / Time amoxicillin Allergy rash Verified 07/10/22 10:10 azithromycin [From Zithromax] Allergy rash Verified 07/10/22 10:10 Penicillins Allergy rash Verified 07/10/22 10:10 Current Medications: Generic Name Dose Route Start Last Admin Trade Name Freq PRN Reason Stop Dose Admin Sodium Chloride 1,000 mls @ 30 mls/hr 07/10/22 10:15 07/10/22 10:23 Sodium Chloride 0.9% IV 07/11/22 10:14 30 mls/hr .Q24H CRISTEL Administration Pertinent History/Comorbid Conditions* Social History Smoking and tobacco status: never smoked Second hand smoke exposure: Yes Alcohol intake: current Alcohol intake frequency: few times a week Pertinent Exam Findings alert, oriented x 3, clear to auscultation bilaterally and regular rate & rhythm Recommendations Surgery/Procedure today Other Plans: Proceed to surgery for manipulation versus possible arthroscopic release of adhesions right shoulder Coding Level of Care Code Acute Concrete Vibrator Operator for Pat Celis
[2022-07-10] MEDS: betamethasone susp 6 mg/mL 5 mL IM (13:10)
--- NOTE | 2022-07-10 13:21 | P.PCN_ITS ---
PACU note Narrative: VSS, Good respiratory effort, report to EVP Exam: awake
--- NOTE | 2022-07-10 13:21 | PM.PACU ---
PACU note Narrative: VSS, Good respiratory effort, report to BUDGET CONSULTANT Exam: awake
--- NOTE | 2022-07-10 13:24 | PM.OP ---
Operative Report Date of procedure: July 10, 2022 Pre-op diagnosis: Preop Diagnosis Adhesive capsulitis right shoulder Post-op diagnosis: same Procedure done: Manipulation right shoulder Injection large joint (right shoulder) Pathology: none sent Surgeon: Cali Hubbard Anesthesia: General and Nerve Block (Interscalene block) Estimated blood loss (mL): 0 Findings: The operatively the right shoulder could be flexed to 120 degrees and externally rotated 30 degrees. In 90 degrees of abduction, she could externally rotate 30 degrees and into rotate 30 degrees. Contralateral shoulder motions were 180, 60, 90, and 90. Condition: stable Disposition: PACU Brief History: See history and physical Procedure: The patient was taken to the operating room and sedation was provided. Initially the left shoulder was brought through a full range of motion to determine normals and right range of motion was assessed. Once adequate sedation was obtained the right shoulder was flexed to 180 degrees with clear adhesions released. The arm was then brought out to 90 degrees externally rotated 90 degrees and internally rotated 90 degrees with additional adhesions felt to release. Finally the elbow was brought down to the side and arm externally rotated 60 degrees. The right shoulder was then prepped anteriorly with a ChloraPrep an 18-gauge needle was introduced in the area of the glenohumeral joint and the joint infiltrated with 1 cc of Kenaglog (40mg) and 4 cc of half percent Marcaine.
[2022-07-10] MEDS: oxyCODONE-APAP 5-325 mg Tablet 1 TAB PO (14:09)
--- NOTE | 2022-07-10 15:51 | ANE.PACU2 ---
Inpatient post-anesthesia follow up: Airway intact: Yes Vital signs: Temperature 97.6 F Pulse Rate 94 Respiratory Rate 18 Blood Pressure 140/97 Pulse Oximetry 98 Oxygen Delivery Me thod Room Air Oxygen Flow Rate Fraction of Inspir ed Oxygen Hydration adequate: Yes Nausea and vomiting: No Pain level: 1 Mental status: Baseline
== END 2022-07-10 14:46 | disposition home or self-care (01) ==
PROVIDERS: PCP Family Medicine; Visit Provider Orthopaedic Surgery
PROC: (CPT 23700; principal; 2022-07-10 11:20)
DX: M75.01 Adhesive capsulitis of right shoulder (principal)
CPT/HCPCS: 23700; 81025; 84703; J0702; J1100; J2250; J2704; J2795; J3010; J3490; J7030

== ENCOUNTER 2022-08-10 06:00 | Outpatient (RCR) | payer OTHER, SELFPAY | END 2022-09-09 23:59 | disposition home or self-care (01) | LOC: SPT 06:00 | PROVIDERS: PCP Family Medicine; Visit Provider Nurse Practitioner Family | DX: M25.611 Stiffness of right shoulder, not elsewhere classified (principal); M25.511 Pain in right shoulder | CPT/HCPCS: 97110; 97161; 97530 ==

== ENCOUNTER 2022-09-10 06:00 | Outpatient (RCR) | payer OTHER, SELFPAY | END 2022-10-07 23:59 | disposition home or self-care (01) | LOC: SPT 06:00 | PROVIDERS: PCP Family Medicine; Visit Provider Nurse Practitioner Family | DX: M25.611 Stiffness of right shoulder, not elsewhere classified (principal); M25.511 Pain in right shoulder | CPT/HCPCS: 97110; 97530 ==

== ENCOUNTER 2022-10-08 06:00 | Outpatient (RCR) | payer OTHER, SELFPAY | END 2022-11-07 23:59 | disposition home or self-care (01) | LOC: SPT 06:00 | PROVIDERS: PCP Family Medicine; Visit Provider Nurse Practitioner Family | DX: M75.01 Adhesive capsulitis of right shoulder (principal) | CPT/HCPCS: 97110; 97530 ==

== ENCOUNTER → 2022-10-18 10:16 | Outpatient (BNVA) | payer OTHER, SELFPAY | PROVIDERS: PCP Family Medicine; Visit Provider Nurse Practitioner | DX: J02.9 Acute pharyngitis, unspecified (principal); J06.9 Acute upper respiratory infection, unspecified | CPT/HCPCS: 87071; 87880 ==

== ENCOUNTER 2022-11-08 01:00 | Outpatient (RCR) | payer OTHER, SELFPAY | END 2022-12-07 23:59 | disposition home or self-care (01) | LOC: SPT 01:00 | PROVIDERS: PCP Family Medicine; Visit Provider Nurse Practitioner Family | DX: M75.01 Adhesive capsulitis of right shoulder (principal) | CPT/HCPCS: 97110 ==

== ENCOUNTER 2022-12-08 06:00 | Outpatient (RCR) | payer OTHER, SELFPAY | END 2023-01-07 23:59 | disposition home or self-care (01) | LOC: SPT 06:00 | PROVIDERS: PCP Family Medicine; Visit Provider Nurse Practitioner Family | DX: M25.511 Pain in right shoulder (principal); M25.611 Stiffness of right shoulder, not elsewhere classified | CPT/HCPCS: 97110 ==

== ENCOUNTER 2023-01-08 01:00 | Outpatient (RCR) | payer OTHER, SELFPAY | END 2023-02-06 23:59 | disposition home or self-care (01) | LOC: SPT 01:00 | PROVIDERS: PCP Family Medicine; Visit Provider Nurse Practitioner Family | DX: M25.511 Pain in right shoulder (principal) | CPT/HCPCS: 97110 ==

== ENCOUNTER 2023-02-07 06:00 | Outpatient (RCR) | payer OTHER, SELFPAY | END 2023-03-05 23:59 | disposition home or self-care (01) | LOC: SPT 06:00 | PROVIDERS: PCP Family Medicine; Visit Provider Nurse Practitioner Family | DX: M25.511 Pain in right shoulder (principal); M25.611 Stiffness of right shoulder, not elsewhere classified | CPT/HCPCS: 97110 ==

== ENCOUNTER 2023-06-15 08:49 | Outpatient (RCR) | payer OTHER, SELFPAY | END 2023-07-09 23:59 | disposition home or self-care (01) | LOC: SPT 08:49 | PROVIDERS: PCP Clinical Nurse Specialist Adult Health; Visit Provider Physician Assistant | DX: M25.511 Pain in right shoulder (principal) | CPT/HCPCS: 97110; 97161 ==

== ENCOUNTER 2023-07-10 06:00 | Outpatient (RCR) | payer OTHER, SELFPAY | END 2023-08-09 23:59 | disposition home or self-care (01) | LOC: SPT 06:00 | PROVIDERS: PCP Clinical Nurse Specialist Adult Health; Visit Provider Physician Assistant | DX: M25.511 Pain in right shoulder (principal) | CPT/HCPCS: 97110 ==

== ENCOUNTER 2023-08-10 06:00 | Outpatient (RCR) | payer OTHER, SELFPAY | END 2023-09-09 23:59 | disposition home or self-care (01) | LOC: SPT 06:00 | PROVIDERS: PCP Clinical Nurse Specialist Adult Health; Visit Provider Physician Assistant | DX: M25.512 Pain in left shoulder (principal) | CPT/HCPCS: 97110 ==

== ENCOUNTER 2023-09-10 06:00 | Outpatient (RCR) | payer OTHER, SELFPAY | END 2023-10-08 23:59 | disposition home or self-care (01) | LOC: SPT 06:00 | PROVIDERS: PCP Clinical Nurse Specialist Adult Health; Visit Provider Physician Assistant | DX: M25.511 Pain in right shoulder (principal) | CPT/HCPCS: 97110 ==

== ENCOUNTER → 2023-09-18 10:27 | Outpatient (BNVA) | payer OTHER, SELFPAY | PROVIDERS: PCP Clinical Nurse Specialist Adult Health; Visit Provider Nurse Practitioner | DX: R09.81 Nasal congestion (principal); J01.90 Acute sinusitis, unspecified; J01.40 Acute pansinusitis, unspecified | CPT/HCPCS: 87400 ==

== ENCOUNTER 2023-10-09 06:00 | Outpatient (RCR) | payer OTHER, SELFPAY | END 2023-11-08 23:59 | disposition home or self-care (01) | LOC: SPT 06:00 | PROVIDERS: PCP Clinical Nurse Specialist Adult Health; Visit Provider Physician Assistant | DX: M25.511 Pain in right shoulder (principal) | CPT/HCPCS: 97110 ==

== ENCOUNTER 2023-11-09 06:00 | Outpatient (RCR) | payer OTHER, SELFPAY | END 2023-12-01 23:59 | disposition home or self-care (01) | LOC: SPT 06:00 | PROVIDERS: PCP Clinical Nurse Specialist Adult Health; Visit Provider Physician Assistant | DX: M25.511 Pain in right shoulder (principal) | CPT/HCPCS: 97110 ==

== ENCOUNTER → 2023-12-12 11:13 | Outpatient (BNVA) | payer OTHER, SELFPAY | PROVIDERS: PCP Clinical Nurse Specialist Adult Health | DX: J06.9 Acute upper respiratory infection, unspecified (principal) | CPT/HCPCS: 87400; 87880 ==

== ENCOUNTER 2025-06-07 14:04 | Emergency (ER) | payer MEDICAID, SELFPAY ==
[2025-06-07 14:12] VITALS: BP 150/88; PULSE 94; RESP 18; O2SAT 99
--- NOTE | 2025-06-07 15:37 | CTR_ITS ---
PROCEDURE INFORMATION: Exam: CT Abdomen And Pelvis With Contrast Exam date and time: 06/07/2025 4:24 PM Age: 25 years old Clinical indication: Abdominal pain; Flank; Right lower quadrant (rlq); Additional info: Rlq abd pain TECHNIQUE: Imaging protocol: Computed tomography of the abdomen and pelvis with contrast. Radiation optimization: All CT scans at this facility use at least one of these dose optimization techniques: automated exposure control; mA and/or kV adjustment per patient size (includes targeted exams where dose is matched to clinical indication); or iterative reconstruction. Contrast material: OMNI 350; Contrast volume: 100 ml; Contrast route: INTRAVENOUS (IV); COMPARISON: ES surgery / GI images 01/23/2022 9:59 AM RADIATION DOSE METRICS: Total DLP (mGy-cm): 843.21 FINDINGS: Liver: Normal. No mass. Gallbladder and biliary ducts: Surgically absent gallbladder. No significant biliary ductal dilatation. Pancreas: Normal. No ductal dilation. Spleen: Normal. No splenomegaly. Adrenal glands: Normal. No mass. Kidneys and ureters: No suspicious renal lesions. No hydronephrosis or nephrolithiasis. No ureteral stones. Stomach and bowel: Normal caliber of the bowel without evidence of obstruction. No focal bowel wall thickening or inflammation. Appendix: Unremarkable. Intraperitoneal space: Unremarkable. No free air. No significant fluid collection. Vasculature: Unremarkable. No abdominal aortic aneurysm. Lymph nodes: Unremarkable. No enlarged lymph nodes. Urinary bladder: Urinary bladder unremarkable. Reproductive: Uterus unremarkable. Intrauterine contraceptive device in satisfactory position. No significant adnexal masses. Bones/joints: No significant focal osseous lesions. No fractures or malalignment. Soft tissues: Unremarkable. CT/CT abdomen pelvis w con* [id number] IMPRESSION: No acute findings in the abdomen or pelvis.
--- NOTE | 2025-06-07 15:37 | W.ED.ABDPA2 ---
HPI - Abdominal Pain General: Chief Complaint: Abdominal Pain Stated Complaint: n/v lower abd pain History of Present Illness: Patient is a 25-year-old identifies as male, he/him/his, presents with umbilicus pain. He has refractory nausea, and vomiting. Content: This started at 830 this morning. Nothing prompted the nausea and vomiting. He is passing gas. He did try to go to his primary care physician and was brought to the emergency room with concern of acute abdomen. He is status post cholecystectomy. He describes it as right above his umbilicus. Home self treatment: Pepto-Bismol this morning. He has not been able to hold anything else down. He had nausea and vomiting in triage and waiting room. Unable to obtain temperature due to the ongoing nausea and vomiting. Associated Symptoms: Reports nausea and vomiting; Denies constipation and diarrhea Related Data Home Medications ?Medication ?Instructions ?Recorded ?Confirmed acetaminophen 325 mg tablet 325 mg PO QID PRN Pain 07/17/21 06/07/25 (Tylenol) levonorgestrel (Mirena) 20 mcg intrauterine ONCE 07/17/21 06/07/25 testosterone cypionate 200 mg/mL 600 mg SUBCUT Q7D 02/24/25 06/07/25 intramuscular oil bismuth subsalicylate 262 mg/15 mL 524 mg PO Q1H PRN upset stomach 06/07/25 06/07/25 oral suspension (Pepto-Bismol) ibuprofen 200 mg tablet (Advil) 800 mg PO Q6H PRN Fever Or Pain 06/07/25 06/07/25 Previous Rx's ?Medication ?Instructions ?Recorded escitalopram oxalate 20 mg tablet 20 mg PO DAILY #90 tabs 11/18/24 dextroamphetamine-amphetamine 15 15 mg PO DAILY 30 days #30 tabs 06/02/25 mg tablet (Adderall) dextroamphetamine-amphetamine ER 30 mg PO QAM 30 days #30 caps 06/02/25 30 mg 24hr capsule,extend release (Adderall XR) hydroxyzine HCl 25 mg tablet 25 mg PO BID PRN anxiety #30 tabs 06/02/25 ondansetron 4 mg disintegrating 4 mg PO Q8H PRN nausea and 06/07/25 tablet vomiting 4 days #14 tabs Allergies Allergy/AdvReac Type Severity Reaction Status Date / Time amoxicillin Allergy rash Verified 06/07/25 13:38 azithromycin (From Zithromax) Allergy rash Verified 06/07/25 13:38 Penicillins Allergy rash Verified 06/07/25 13:38 Review of Systems General: Reports: 10 or more systems reviewed and unremarkable except in HPI and below Eyes: Denies: change in vision Card: Denies: chest pain, palpitations or dyspnea on exertion Resp: Denies: dyspnea GI: Reports: abdominal pain, nausea and vomiting; Denies: diarrhea or constipation Musc: Denies: neck pain, back pain or joint pain Skin/Breast: Denies: rash or new lesions Neuro: Denies: headache(s), numbness in extremities or weakness in extremities Psych: Denies: anxiety or depression PFS ED PFSH: Medical History (Updated 06/07/25 @ 17:26 by TENA Gomez) ADHD Moderately severe depression Generalized anxiety disorder Surgical History H/O shoulder surgery X 5 Family History Grandfather Lymphoma Heart disease Diabetes Grandmother Alzheimer's dementia Father Cancer Social History Smoking and tobacco/nicotine status: never used tobacco/nicotine Second hand smoke exposure: Yes Alcohol intake: current Alcohol intake frequency: few times a week Substance/Drug Use: never Physical Exam Const: COMMON NORMALS: patient oriented x3 GENERAL APPEARANCE: cooperative, anxious and disheveled HENMT: COMMON NORMALS: normocephalic and atraumatic HEAD & SCALP: normocephalic and atraumatic Chest: COMMONS NORMALS: normal inspection of the chest and normal palpation of entire chest wall Resp: COMMON NORMALS: normal respiratory effort, No retractions and clear to auscultation bilaterally AUSCULTATION: clear to auscultation bilaterally GI: COMMON NORMALS: Soft to palpation and No hepatosplenomegaly present PALPATION: Yes Soft to palpation, Yes Tenderness to palpation present (GI) Details: RLQ and other (Umbilicus, epigastric), Yes Guarding due to palpation present (GI) in the RLQ, No Rigid due to palpation, Yes No hepatosplenomegaly present and Yes Other GI palpation findings present (Signs: McBurney's point, Rovsing's, psoas all positive) PERCUSSION: normal to percussion : COMMON NORMALS: Yes no CVA tenderness BLADDER/KIDNEY EXAM: Yes no CVA tenderness Back/Pelvis: COMMON NORMALS: no CVA tenderness Neuro: COMMON NORMALS: patient oriented x3 and CN's II-XII intact bilaterally Psych: COMMON NORMALS: mental status grossly normal, Normal thought process present and cooperative THOUGHT PROCESS: Normal thought process present Course Reevaluation(s): Reevaluation #1: Patient states no change. He does appear to be writhing less in pain and no longer vomiting at bedside. Reevaluation #2: Doing better. Acknowledge improvement. Vital Signs: Vital signs: Vital Signs Temperature 98.3 F 06/07/25 17:34 Pulse Rate 94 06/07/25 14:12 Respiratory Rate 18 06/07/25 14:12 Blood Pressure 150/88 06/07/25 14:12 Pulse Oximetry 99 06/07/25 14:12 Oxygen Delivery Me thod Room Air 06/07/25 14:12 MDM - Abdominal Pain Medical Decision Making Patient is 25-year-old presents with nausea, vomiting, umbilical and right lower quadrant pain. CT of the abdomen with contrast was ordered, however no acute findings were noted. She did have secondary polycythemia vera indicating she has had volume loss due to nausea and vomiting. She is feeling better after fentanyl, Zofran, and Benadryl. She does have some association of anxiety. Will place her on clear liquid diet for gastroenteritis and have her follow-up with primary care. Zofran sent to the pharmacy for nausea and vomiting. Patient is improved at bedside. Resting. Family updated. Medical Records I reviewed the patient's medical records. Lab Data I reviewed the patient's lab results. 06/07/25 15:38 06/07/25 15:38 Labs/Radiology: Radiology Impressions Abdomen/Pelvis CT 06/07/25 15:37 IMPRESSION: No acute findings in the abdomen or pelvis. Laboratory Results WBC 11.07 10^3/uL (3.29-11.43) 06/07/25 15:38 RBC 5.79 10^6/uL (3.85-5.65) H 06/07/25 15:38 Hgb 17.20 g/dL (11.27-16.99) H 06/07/25 15:38 Hct 50.7 % (36-47) H 06/07/25 15:38 MCV 87.6 fl (85-98) 06/07/25 15:38 MCH 29.7 pg (27-33) 06/07/25 15:38 MCHC 33.9 g/dL (30-55) 06/07/25 15:38 RDW 13.5 % (12.1-15.1) 06/07/25 15:38 Plt Count 423 10^3/cmm (157-399) H 06/07/25 15:38 MPV 10.4 fL (7.4-10.4) 06/07/25 15:38 Neut % (Auto) 86.8 % 06/07/25 15:38 Lymph % (Auto) 9.8 % 06/07/25 15:38 [place] % (Auto) 2.3 % 06/07/25 15:38 Eos % (Auto) 0.2 % 06/07/25 15:38 Baso % (Auto) 0.5 % 06/07/25 15:38 Neut # (Auto) 9.61 10^3/uL (1.8-7.7) H 06/07/25 15:38 Lymph # (Auto) 1.1 10^3/uL (0.8-4.8) 06/07/25 15:38 [place] # (Auto) 0.3 10^3/uL (0.2-0.9) 06/07/25 15:38 Eos # (Auto) 0.0 10^3/uL (0.0-0.8) 06/07/25 15:38 Baso # (Auto) 0.1 10^3/uL (0.0-0.1) 06/07/25 15:38 Nucleated RBC % (auto) 0 % 06/07/25 15:38 Nucleated RBCs # 0.0 /100WBC 06/07/25 15:38 Sodium 142 mmol/L (136-145) 06/07/25 15:38 Potassium 3.3 mmol/L (3.5-5.1) L 06/07/25 15:38 Chloride 102 mmol/L (98-107) 06/07/25 15:38 Carbon Dioxide 21 mmol/L (22-29) L 06/07/25 15:38 Anion Gap 22.3 (5-19) H 06/07/25 15:38 BUN 8 mg/dL (6-20) 06/07/25 15:38 Creatinine 0.8 mg/dL (0.5-0.9) 06/07/25 15:38 GFR Calculation 87.4 mL/min (90-130) L 06/07/25 15:38 Glucose 120 mg/dL (65-115) H 06/07/25 15:38 Calculated Osmolality 294 mOsm/kg (285-295) 06/07/25 15:38 Calcium 10.1 mg/dL (8.5-10.5) 06/07/25 15:38 Magnesium 1.8 mg/dL (1.7-2.3) 06/07/25 15:38 Total Bilirubin 1.2 mg/dL (0.15-1.2) 06/07/25 15:38 AST 19 U/L (0-32) 06/07/25 15:38 ALT 17 U/L (0-33) 06/07/25 15:38 Alkaline Phosphatase 101 U/L (35-105) 06/07/25 15:38 Total Protein 8.4 g/dL (6.6-8.7) 06/07/25 15:38 Albumin 4.9 g/dL (3.5-5.2) 06/07/25 15:38 Globulin 3.5 g/dL (1.3-4.6) 06/07/25 15:38 Lipase 28 U/L (13-60) 06/07/25 15:38 All radiology interpretation(s) finalized by discharge Discharge Plan Discharge Patient Disposition: Home Clinical Impression: Gastroenteritis, Polycythemia vera, Acute hypokalemia Condition: Stable Prescriptions: New ondansetron 4 mg tablet,disintegrating 4 mg PO Q8H PRN (Reason: nausea and vomiting) 4 Days Qty: 14 0RF No Action escitalopram oxalate 20 mg tablet 20 mg PO DAILY Qty: 90 1RF testosterone cypionate 200 mg/mL oil 600 mg SUBCUT Q7D dextroamphetamine-amphetamine [Adderall] 15 mg tablet 15 mg PO DAILY 30 Days Qty: 30 0RF Rx Instructions: to take a 3PM dextroamphetamine-amphetamine [Adderall XR] 30 mg capsule,extended release 24hr 30 mg PO QAM 30 Days Qty: 30 0RF hydroxyzine HCl 25 mg tablet 25 mg PO BID PRN (Reason: anxiety) Qty: 30 1RF acetaminophen [Tylenol] 325 mg Tablet 325 mg PO QID PRN (Reason: Pain) Mirena 20 mcg/24 hours (6 yrs) 52 mg Intrauterine Device 20 mcg INTRAUTERINE ONCE bismuth subsalicylate [Pepto-Bismol] 262 mg/15 mL Suspension 524 mg PO Q1H PRN (Reason: upset stomach ) Rx Instructions: do not exceed 8 doses in a 24 hour period ibuprofen [Advil] 200 mg Tablet 800 mg PO Q6H PRN (Reason: Fever Or Pain) Discharge Orders: Discharge ED (Routine); Ordered 06/07/25 Ordered By: Marzena Marquez Referrals: Miguel Angel Siddiqi MD [Primary Care Provider, [facility]] Discharge Diet: Clear Liquid Discharge Activity: Resume usual activity Patient Instructions: Gastroenteritis (ED), Abdominal Pain (ED), Opioid Safety, Pain Management, Patient Portal & Maia Instructions Activity Restrictions/Additional Instructions: - Clear liquid diet only until pain and nausea, vomiting resolves - Zofran was sent to your pharmacy for nausea and vomiting. Benadryl can also be utilized with liquid form if you have breakthrough nausea and vomiting. - Make a follow-up appointment with your doctor regarding this issue. -Return to ED if you have worsening symptoms. Thank you for choosing [facility] for your healthcare needs today. You have been screened and evaluated and felt safe for discharge. Health conditions do change or evolve sometimes and as such it is important that you follow up with your Primary Doctor to be re checked, 3-5 days is a general good time frame for follow up. You are always welcome to return to the ED for re assessment if your symptoms are worsening or you have new concerns Stand Alone Forms: Work/School Release Print Language: Russian Coding Level of Care Code ED Construction Technician for Pat Celis
[2025-06-07] MEDS: ondansetron 2 mg/ML SDV 2 mL 4 MG IVP (15:44)
[2025-06-07] MEDS: fentaNYL 50 mcg/mL INJ 2mL IVP ×2 (15:45→16:37)
[2025-06-07 16:20] LABS: Hematocrit 50.7 % (36-47); Hemoglobin 17.20 g/dL (11.27-16.99); Mean Corpuscular HGB Conc 33.9 g/dL (30-55); Mean Corpuscular Hemoglobin 29.7 pg (27-33); Mean Corpuscular Volume 87.6 fl (85-98); Nucleated Red Blood Cells % 0 %; Platelet Count 423 10^3/cmm (157-399); Red Blood Count 5.79 10^6/uL (3.85-5.65); White Blood Count 11.07 10^3/uL (3.29-11.43)
--- NOTE | 2025-06-07 16:22 | PC.NURSE ---
PT REFUSING U/A AND HCG. PT SIGNED CONSENT TO CT WITHOUT HCG RESULTS.
[2025-06-07] MEDS: iohexol 350 mg/mL 500 mL Btl (per mL) IV (16:28)
[2025-06-07 16:37] LABS: Alanine Aminotransferase 17 U/L (0-33); Albumin Level 4.9 g/dL (3.5-5.2); Alkaline Phosphatase 101 U/L (35-105); Anion Gap 22.3 (5-19); Aspartate Amino Transferase 19 U/L (0-32); Blood Urea Nitrogen 8 mg/dL (6-20); Calcium 10.1 mg/dL (8.5-10.5); Carbon Dioxide 21 mmol/L (22-29); Chloride 102 mmol/L (98-107); Creatinine Clr Calc Pharmacy 120.4884; Globulin 3.5 g/dL (1.3-4.6); Glucose 120 mg/dL (65-115); Lipase 28 U/L (13-60); Magnesium 1.8 mg/dL (1.7-2.3); Osmolality Calculated 294 mOsm/kg (285-295); Potassium 3.3 mmol/L (3.5-5.1); Sodium 142 mmol/L (136-145); Total Protein 8.4 g/dL (6.6-8.7)
[2025-06-07] MEDS: diphenhydrAMINE 50 mg/mL SDV 1mL IVP (16:37)
[2025-06-07 17:34] VITALS: TEMP 36.8
[2025-06-07] MEDS: pantoprazole 40 mg SDV IVP (17:35)
[2025-06-07 18:18] LABS: HCG Qualitative Urine. Negative (Negative)
[2025-06-07 18:56] VITALS: BP 175/97; PULSE 97; O2SAT 100
[2025-06-07 19:04] LABS: Glucose Urine UA Negative (Normal); Nitrate Urine Negative (Negative)
[2025-06-07 19:06] LABS: Add Urine Microscopic? YES
[2025-06-07 19:22] LABS: Specific Gravity, Urine 1.071 (1.005-1.030)
== END 2025-06-07 18:58 | disposition home or self-care (01) ==
PROVIDERS: Emergency Provider Physician Assistant; PCP Family Medicine
DX: K52.9 Noninfective gastroenteritis and colitis, unspecified (principal); D45 Polycythemia vera; E87.6 Hypokalemia
CPT/HCPCS: 36415; 74177; 80053; 81001; 81025; 83690; 83735; 85025; 96361; 96374; 96375; 96376; 99285; J1200; J2405; J2470; J3010; J7120; J9999